=== PATIENT | male | born 1980 | race Caucasian/White ===

== ENCOUNTER 2017-02-08 20:19 | Emergency (ER) | payer BC ==
[2017-02-08 20:58] VITALS: BP 118/67; PULSE 86; RESP 18; TEMP 97.3
--- NOTE | 2017-02-08 21:41 | ED PDOC ---
HPI: Wound Care - HPI Time Seen by Provider: 02/08/17 21:22 Chief Complaint (Nursing): Abnormal Skin Integrity Chief Complaint (Provider): Laceration History Per: Patient Exam Limitations: no limitations Onset/Duration Of Symptoms: Hrs (x3) Current Symptoms Are (Timing): Still Present Additional Complaint(s): 36 y/o male with no past medical history, who states that while at work approximately 3 hours ago, he sustained a laceration to his left 2nd finger with a tyson razor blade. He notes it bled, and he cleaned it with hydrogen peroxide. Tetanus not up to date. He is right hand dominant. (-)numbness (-) fever PMD: None Past Medical History Reviewed: Historical Data, Nursing Documentation, Vital Signs Vital Signs: Last Vital Signs Temp 97.3 F L 02/08/17 20:56 Pulse 86 02/08/17 20:56 Resp 18 02/08/17 20:56 BP 118/67 02/08/17 20:56 Pulse Ox 93 L 02/08/17 20:56 - Medical History PMH: Sexually Transmitted Disease (chlamydia) - Family History Family History: States: Unknown Family Hx - Home Medications Home Medications: Ambulatory Orders Medication Instructions Recorded Ciprofloxacin [Cipro] 250 mg PO BID #14 tab 04/09/15 Nystatin [Mycostatin Oint] 30 applic EXT DAILY #1 tube 04/09/15 Doxycycline Hyclate 100 mg PO BID #14 tablet 04/22/15 Bacitracin OINT 1 g TOP BID 7 Days tube 02/08/17 Cephalexin [Keflex] 500 mg PO QID #28 capsule 02/08/17 - Allergies Allergies/Adverse Reactions: Allergies Allergy/AdvReac Type Severity Reaction Status Date / Time No Known Allergies Allergy Verified 04/22/15 11:11 Review of Systems ROS Statement: Except As Marked, All Systems Reviewed And Found Negative Skin: Positive for: Lesions (laceration to left finger) Neurological: Negative for: Weakness, Numbness Physical Exam - Reviewed Nursing Documentation Reviewed: Yes Vital Signs Reviewed: Yes - Physical Exam Appears: Positive for: Well, Non-toxic, No Acute Distress Head Exam: Positive for: ATRAUMATIC, NORMAL INSPECTION, NORMOCEPHALIC Skin: Positive for: Normal Color ((+)approximately 1.5 cm vertical laceration through the palmar aspect of left 2nd distal phalanx, no active bleeding noted) , Warm Neurologic/Psych: Positive for: Alert, Oriented - ECG O2 Sat by Pulse Oximetry: 93 (RA) Pulse Ox Interpretation: Normal Procedure: Wound Repair - Indications Indication(s):: Laceration - Location Location:: Left, Volar Finger:: Left, Index Shape:: Linear Dimensions Length cm: 1.5 - Anesthetic Technique Local/Regional Anesthetic:: Lidocaine 1% - Wound Examination Wound Examination:: Contaminated (dirty wound noted) - Debris Debris:: None - Complexity Complexity:: Simple (one layer) - Wound repair method Sutures:: # (3 ), Type (4:0 ethlon), Technique (simple interrupted) - Muscle repiar layer closed with Muscle repair layer closed with:: Abx ointment applied, Dressing applied, Tetanus ordered - Patient tolerated procedure Patient Tolerated Procedure:: Well Medical Decision Making Medical Decision Making: Time: 21:42 Initial Plan: Suture repaired. Wound will be repaired in ER. Patient instructed to return in 10 days for suture removal. He was advised to keep wound clean and dry for the first 24 hours, then to clean it daily with Bacitracin application. Scribe Attestation: Documented by Alexandra Barahona, acting as a scribe for Lee Ann De Anda PA-C Provider Scribe Attestation: All medical record entries made by the Scribe were at my direction and personally dictated by me. I have reviewed the chart and agree that the record accurately reflects my personal performance of the history, physical exam, medical decision making, and the department course for this patient. I have also personally directed, reviewed, and agree with the discharge instructions and disposition. Disposition - Clinical Impression Clinical Impression: Laceration - Patient ED Disposition Is Patient to be Admitted: No Counseled Patient/Family Regarding: Diagnosis, Need For Followup, Rx Given - Disposition [facility]errals: [facility] [Outside] Disposition: Routine/Home Disposition Time: 22:41 Condition: STABLE Additional Instructions: Keep wound clean and dry. Clean daily with bacitracin application. Take medication as prescribed. Return in 10 days for suture removal. Prescriptions: Bacitracin OINT 1 g TOP BID 7 Days tube Cephalexin [Keflex] 500 mg PO QID #28 capsule Instructions: Laceration (ED) Forms: [facility] (Tunisian) Print Language: [email or web address]
[2017-02-08] MEDS ORDERED: Povidone Iodine Topical 10% Sol ONE (21:47)
[2017-02-08 23:18] VITALS: O2SAT 93
== END 2017-02-08 23:03 | disposition home or self-care (01) ==
LOC: H.ER 20:19
DX: S61.211A Laceration without foreign body of left index finger without damage to nail, initial encounter (principal); W26.8XXA Contact with other sharp object(s), not elsewhere classified, initial encounter; Y92.89 Other specified places as the place of occurrence of the external cause